=== PATIENT | female | born 1970 | race African-American/Black ===

== ENCOUNTER 2021-03-27 06:35 | Emergency (ER) | payer MEDICAID ==
[2021-03-27] MEDS ORDERED: DIAZEPAM 5 MG TABLET PO ONE (08:30)
[2021-03-27] MEDS ORDERED: KETOROLAC 60MG/2ML VIAL IM ONE (08:30)
[2021-03-27] MEDS ORDERED: IBUP-2029 MT (08:59)
[2021-03-27] MEDS ORDERED: METH-773 MT (08:59)
[2021-03-27 10:05] VITALS: BP 130/78
== END 2021-03-27 10:05 | disposition home or self-care (01) ==
LOC: ER 06:35
DX: M54.30 Sciatica, unspecified side (principal); M79.674 Pain in right toe(s)
CPT/HCPCS: 93971; 96372; 99284; J1885

== ENCOUNTER 2023-11-18 04:46 | Emergency (ER) | payer MEDICAID ==
[~2023-11-18] VITALS: Ht 182.9 cm; Wt 97.5 kg
[~2023-11-18 04:46] MED LIST: IBUP-2029 MT; METH-773 MT
[2023-11-18 04:55] VITALS: O2SAT 99
[2023-11-18 05:35] LABS: BASOPHILS % 0.7 % (0.0-2.0); EOSINOPHILS % 1.2 % (0.0-5.0); HEMATOCRIT. 39.8 % (36.0-48.0); HEMOGLOBIN. 12.7 g/dL (12.0-16.0); MEAN CORPUSCULAR HGB CONC 31.9 g/dL (31.0-37.0); MEAN CORPUSCULAR VOLUME 84.7 fL (81.0-99.0); MEAN PLATELET VOLUME 8.9 fl (7.4-10.4); NEUTROPHILS % 46.1 % (40.0-76.0); PLATELET 332 x1000/uL (130-400); RED CELL DISTRIBUTION WIDTH 14.3 % (11.6-14.6); WHITE BLOOD COUNT 5.5 x1000/uL (4.5-11.0)
[2023-11-18 05:50] LABS: ALANINE AMINOTRANSFERASE 10 IU/L (10-49); ALBUMIN 4.3 g/dL (3.2-4.8); ASPARTATE AMINOTRANSFERASE 13 IU/L (<34); BILIRUBIN TOTAL 0.3 mg/dL (0.1-1.0); CALCIUM 9.2 mg/dL (8.7-10.4); CARBON DIOXIDE 24 mEq/L (21-32); CHLORIDE 108 mEq/L (98-107); CREATININE 0.8 mg/dL (0.6-1.0); GLUCOSE 96 mg/dL (70-105); POTASSIUM 3.9 mEq/L (3.5-5.1); PROTEIN TOTAL 7.2 g/dL (6.0-8.3); SODIUM 140 mEq/L (136-145); UREA NITROGEN BLOOD 11 mg/dL (9-23)
[2023-11-18 06:03] LABS: CLARITY URINE CLOUDY (CLEAR); COLOR URINE YELLOW (YELLOW); GLUCOSE URINE NEGATIVE (NEGATIVE); KETONES URINE NEGATIVE (NEGATIVE); LEUKOCYTE ESTERASE URINE NEGATIVE (NEGATIVE); NITRITE URINE NEGATIVE (NEGATIVE); OCCULT BLOOD URINE NEGATIVE (NEGATIVE); PH URINE 6.5 (4.5-8.0); PROTEIN URINE NEGATIVE (NEGATIVE); SPECIFIC GRAVITY URINE 1.016 (1.005-1.030)
[2023-11-18 06:09] LABS: TROPONIN I HIGH SENSITIVITY < 4 ng/L (3.0-34)
[2023-11-18 06:53] LABS: SQUAMOUS EPITHELIAL CELL URINE 1+ /lpf (RARE/1+)
[2023-11-18 06:55] LABS: RBC URINE 0-2 /hpf (0-2); WBC URINE 0-2 /hpf (0-2)
[2023-11-18 06:58] LABS: BACTERIA URINE NONE SEEN
[2023-11-18] MEDS ORDERED: KETOROLAC 60MG/2ML VIAL IM STA (08:45)
[2023-11-18] MEDS ORDERED: DICYCLOMINE 10 MG/5 ML ORAL SYR PO STA (08:45)
[2023-11-18] MEDS ORDERED: MAGNESIUM/ALUMINUM HYDROXIDE/SIMETHICONE 30ML UDC PO STA (08:45)
[2023-11-18] MEDS ORDERED: IBUP-2029 MT (12:01)
[2023-11-18] MEDS ORDERED: T3 PO (12:01)
[2023-11-18 12:25] VITALS: BP 125/85; PULSE 101; RESP 16; TEMP 98.6
== END 2023-11-18 12:27 | disposition home or self-care (01) ==
LOC: ER 04:46
DX: R16.0 Hepatomegaly, not elsewhere classified (principal); Z68.29 Body mass index [BMI] 29.0-29.9, adult
CPT/HCPCS: 99285; 76700; 80053; 81003; 81025; 83690; 85025; 84484; 36415; 93005; 96372; J1885

== ENCOUNTER 2024-02-10 16:25 | Emergency (ER) | payer MEDICAID ==
[~2024-02-10] VITALS: Ht 172.7 cm; Wt 114.0 kg
[2024-02-10 16:25] VITALS: PULSE 98; RESP 23
[~2024-02-10 16:25] MED LIST changes: +T3 PO
[2024-02-10] MEDS: PROPOFOL 200MG/20ML VIAL IV ONE (16:44)
[2024-02-10] MEDS: PROPOFOL 10MG/ML 100ML 100 ML IV ONE ×2 (16:45→20:47)
[2024-02-10 16:57] LABS: BASOPHILS % 0.6 % (0.0-2.0); EOSINOPHILS % 0.6 % (0.0-5.0); HEMATOCRIT. 39.2 % (36.0-48.0); HEMOGLOBIN. 13.2 g/dL (12.0-16.0); LYMPHOCYTES % 64.5 % (20.0-50.0); MEAN CORPUSCULAR HGB CONC 33.7 g/dL (31.0-37.0); MEAN CORPUSCULAR VOLUME 82.9 fL (81.0-99.0); MEAN PLATELET VOLUME 9.1 fl (7.4-10.4); MONOCYTES % 4.1 % (2.0-8.0); NEUTROPHILS % 30.2 % (40.0-76.0); PLATELET 343 x1000/uL (130-400); RED BLOOD CELL COUNT 4.73 mill/uL (4.2-5.4); RED CELL DISTRIBUTION WIDTH 14.5 % (11.6-14.6); WHITE BLOOD COUNT 8.6 x1000/uL (4.5-11.0)
[2024-02-10 16:59] LABS: CHLORIDE 107 mEq/L (98-107); POTASSIUM 3.4 mEq/L (3.5-5.1); SODIUM 139 mEq/L (136-145)
[2024-02-10 17:00] LABS: CALCIUM 9.4 mg/dL (8.7-10.4); CARBON DIOXIDE 21 mEq/L (21-32)
[2024-02-10 17:05] LABS: CREATININE 0.8 mg/dL (0.6-1.0); GLUCOSE 156 mg/dL (70-105); UREA NITROGEN BLOOD 12 mg/dL (9-23)
[2024-02-10 17:06] LABS: HCG SCREEN NEGATIVE
[2024-02-10 17:07] LABS: ALANINE AMINOTRANSFERASE 8 IU/L (10-49); ALBUMIN 4.5 g/dL (3.2-4.8); ASPARTATE AMINOTRANSFERASE 24 IU/L (<34)
[2024-02-10 17:08] LABS: BILIRUBIN TOTAL 0.2 mg/dL (0.1-1.0); PROTEIN TOTAL 6.9 g/dL (6.0-8.3)
[2024-02-10 17:10] LABS: TROPONIN I HIGH SENSITIVITY 48 ng/L (3.0-34)
[2024-02-10 17:26] LABS: BG BASE EXCESS -1.3 mmol/L (-2.0-2.0); BG CARBOXYHEMOGLOBIN 0.5 % (0.5-1.5); BG DEOXYHEMOGLOBIN 0.3 % (0.0-5.0); BG FRACTION INSPIRED OXYGEN 100; BG HCO3 ACT 22.1 mmol/L (22.0-26.0); BG METHEMOGLOBIN 0.4 % (0.0-1.5); BG OXYGEN SATURATION 99.7 % (92.0-98.5); BG OXYHEMOGLOBIN 98.8 % (94.0-97.0); BG PCO2 33.2 mmHg (35.0-45.0); BG PH 7.442 (7.350-7.450); BG PO2 428.2 mmHg (75.0-100.0); BG SAMPLE SITE RIGHT RADIAL; BG TOTAL HEMOGLOBIN 12.8 g/dL (12.0-18.0); BG TOTAL RESPIRATORY RATE 22 b/min; BG VENT MODE VENT - AC
[2024-02-10 17:48] LABS: CLARITY URINE CLOUDY (CLEAR); COLOR URINE YELLOW (YELLOW); GLUCOSE URINE TRACE (NEGATIVE); KETONES URINE TRACE (NEGATIVE); LEUKOCYTE ESTERASE URINE TRACE (NEGATIVE); NITRITE URINE NEGATIVE (NEGATIVE); OCCULT BLOOD URINE 3+ (NEGATIVE); PROTEIN URINE 4+ (NEGATIVE); SPECIFIC GRAVITY URINE 1.022 (1.005-1.030)
[2024-02-10 18:15] LABS: RBC URINE TNTC /hpf (0-2); WBC URINE 0-2 /hpf (0-2)
[2024-02-10 18:16] LABS: BACTERIA URINE 1+; HYALINE CASTS URINE 0-5 /lpf; SQUAMOUS EPITHELIAL CELL URINE 1+ /lpf (RARE/1+)
[2024-02-10 18:19] LABS: *AMPHETAMINES SCREEN URINE NEGATIVE (NEGATIVE); *BARBITURATES SCREEN URINE NEGATIVE (NEGATIVE); *BENZODIAZEPINES SCREEN URINE NEGATIVE (NEGATIVE); *COCAINE SCREEN URINE NEGATIVE (NEGATIVE); METHADONE URINE SCREEN Neg (NEGATIVE); OPIATES URINE SCREEN NEGATIVE (NEGATIVE)
[2024-02-10] MEDS ORDERED: NICARDIPINE 50 MG in SODIUM CHLORIDE 0.9% 230 ML IV STA (18:19)
[2024-02-10 18:20] LABS: CANNABINOID URINE SCREEN PRESUMPTIVE POSITIVE (NEGATIVE); ECSTASY MDMA SCREEN URINE NEGATIVE (NEGATIVE); PHENCYCLIDINE URINE SCREEN NEGATIVE (NEGATIVE)
[2024-02-10] MEDS: LEVETIRACETAM 500MG PREMIX 100 ML IV ONE (18:29)
[2024-02-10] MEDS: NICARDIPINE 40MG/200ML PREMIX 200 ML IV PRN (18:48)
[2024-02-10 19:30] VITALS: TEMP 98.1
[2024-02-10 20:05] VITALS: PULSE 110; RESP 22
[2024-02-10 20:23] VITALS: PULSE 112
[2024-02-10 20:47] VITALS: BP 122/85; RESP 16; O2SAT 100
[2024-02-10] MEDS ORDERED: IOHEXOL-350 100 ML BOTTLE ONE (23:03)
== END 2024-02-10 20:51 | disposition short-term general hospital (02) ==
LOC: ER 16:25 → CANBEDREQ 18:52 → ER 20:51
DX: I60.9 Nontraumatic subarachnoid hemorrhage, unspecified (principal)
CPT/HCPCS: 80053; 80305; 81003; 82962; 84703; 83880; 85025; 84484; 36415; 74174; 71045; 71275; 70450; 82805; 82375; 93005; 96365; 96375; 99291; 36600; Q9967; Z7610 ×6; J1953; J2704; 94002; J3490; J7050